=== PATIENT | male | born 1985 | race African-American/Black ===

== ENCOUNTER → 2019-10-16 | Outpatient (CLI) | payer OTHER ==
[2019-10-17 08:07] LABS: RUBELLA AB IGG-REFLAB 3.02 index (Immune >0.99); RUBEOLA (MEASLES) IGG 64.8 AU/mL (Immune >16.4)
== END | disposition home or self-care (01) ==
LOC: LABMN 13:39
PROVIDERS: ATTEND Internal Medicine
DX: Z02.1 Encounter for pre-employment examination (principal)
CPT/HCPCS: 86706; 86735; 86762; 86765; 86787